=== PATIENT | male | born 1955 | race Caucasian/White ===

== ENCOUNTER 2016-08-31 10:18 | Inpatient (IN) | payer MEDICAID, OTHER, SELFPAY ==
[~2016-08-31] VITALS: Ht 167.6 cm; Wt 79.0 kg
[2016-08-31] MEDS ORDERED: INSU300I SQ (10:55)
[2016-08-31] MEDS ORDERED: INSU200I SQ (10:55)
[2016-08-31] MEDS ORDERED: ONDANSETRON 2MG/ML, 2ML ONE (11:24)
[2016-08-31] MEDS ORDERED: MECLIZINE CHEWABLE 25 MG TAB ONE (11:28)
[2016-08-31] MEDS ORDERED: MECLIZINE CHEWABLE 25 MG TAB PO ONE (11:30)
[2016-08-31] MEDS ORDERED: SODIUM CHLORIDE 0.9% 1,000ML IVBOLUS ONE (11:30)
[2016-08-31] MEDS ORDERED: ONDANSETRON 2MG/ML, 2ML IVPush ONE (11:30)
[2016-08-31] MEDS ORDERED: SODIUM CHLORIDE FLUSH 10ML SYR IVF ONE (11:30)
[2016-08-31 11:57] LABS: ASPARTATE AMINO TRANSFERASE 36 U/L (15-37); BLOOD UREA NITROGEN 14 mg/dL (7-18)
[2016-08-31 12:01] LABS: IS PT STATUS REG ER OR PRE ER? YES
[2016-08-31] MEDS ORDERED: NITROGLYCERIN 0.4 MG BOTTLE (25 TABS) SL PRN (13:00)
[2016-08-31] MEDS ORDERED: DOCUSATE 100 MG CAPSULE PO PRN (13:00)
[2016-08-31] MEDS ORDERED: morphine SULFATE 10 MG/ML, 1ML IVPush PRN (13:00)
[2016-08-31] MEDS ORDERED: ONDANSETRON 2MG/ML, 2ML IVP PRN (13:00)
[2016-08-31] MEDS ORDERED: ENOXAPARIN 40 MG/0.4 ML SQ SCH (13:00)
[2016-08-31] MEDS ORDERED: ENALAPRILAT 1.25 MG/ML, 2ML IVPush PRN (13:00)
[2016-08-31] MEDS ORDERED: ACETAMINOPHEN 325 MG TABLET PO PRN (13:00)
[2016-08-31] MEDS ORDERED: LORazepam 2 MG/ML, 1ML IVPush PRN (13:00)
[2016-08-31 14:10] VITALS: BP 132/71
[2016-08-31] MEDS: HYDROcodone/APAP 5/325 TABLET PO PRN ×2 (14:31→21:15)
[2016-08-31] MEDS ORDERED: GADOBUTROL 10 MMOL/10 ML PFS ONE (15:16)
[2016-08-31] MEDS: ASPIRIN 325 MG TABLET EC PO SCH (15:35)
[2016-08-31] MEDS ORDERED: INSULIN ASPART 100 UNITS/ML, PEN SQ-INSULIN SCH ×2 (16:00→21:00)
[2016-08-31] MEDS: INSULIN ASPART 100 UNITS/ML, PEN SQ-INSULIN SCH ×2 (18:55→22:34)
[2016-08-31 20:00] VITALS: BP 134/75
[2016-08-31 20:10] LABS: IS PT STATUS REG ER OR PRE ER? NO
[2016-08-31] MEDS: ATORVASTATIN 10 MG TABLET PO SCH (22:33)
[2016-08-31] MEDS: ENOXAPARIN 40 MG/0.4 ML SQ SCH (22:33)
[2016-09-01 00:09] LABS: IS PT STATUS REG ER OR PRE ER? NO
[2016-09-01 02:00] VITALS: BP 110/66
[2016-09-01] MEDS: ASPIRIN 325 MG TABLET EC PO SCH (05:48)
[2016-09-01] MEDS: INSULIN ASPART 100 UNITS/ML, PEN SQ-INSULIN SCH ×4 (07:00→20:45)
[2016-09-01 07:14] LABS: ASPARTATE AMINO TRANSFERASE 20 U/L (15-37); BLOOD UREA NITROGEN 15 mg/dL (7-18)
[2016-09-01] MEDS ORDERED: LISINOPRIL 10 MG TABLET PO SCH (09:00)
[2016-09-01] MEDS: INSULIN DETEMIR 100 UNITS/ML, PEN SQ-INSULIN SCH (09:07)
[2016-09-01 09:15] VITALS: BP 136/77
[2016-09-01] MEDS ORDERED: REGADENOSON 0.4 MG/5 ML SYRINGE ONE (09:46)
[2016-09-01 16:52] VITALS: BP 129/76
[2016-09-01 19:42] VITALS: BP 135/75
[2016-09-01] MEDS: ENOXAPARIN 40 MG/0.4 ML SQ SCH (20:46)
[2016-09-01] MEDS: ATORVASTATIN 10 MG TABLET PO SCH (20:47)
[2016-09-02 01:00] VITALS: BP 131/75
[2016-09-02] MEDS: INSULIN ASPART 100 UNITS/ML, PEN SQ-INSULIN SCH ×4 (07:00→20:23)
[2016-09-02 07:47] VITALS: BP 128/65
[2016-09-02] MEDS: ASPIRIN 325 MG TABLET EC PO SCH (08:54)
[2016-09-02] MEDS: INSULIN DETEMIR 100 UNITS/ML, PEN SQ-INSULIN SCH (08:55)
[2016-09-02] MEDS: HYDROcodone/APAP 5/325 TABLET PO PRN (10:23)
[2016-09-02 13:59] VITALS: BP 125/71
[2016-09-02] MEDS: POLYETHYLENE GLYCOL 17 GM PACKET PO PRN (17:19)
[2016-09-02 18:46] VITALS: BP 124/71
[2016-09-02] MEDS: ENOXAPARIN 40 MG/0.4 ML SQ SCH (20:21)
[2016-09-02] MEDS: ATORVASTATIN 10 MG TABLET PO SCH (20:21)
[2016-09-03 01:59] VITALS: BP 136/66
[2016-09-03] MEDS: ASPIRIN 325 MG TABLET EC PO SCH (06:20)
[2016-09-03 06:57] VITALS: BP 153/81
[2016-09-03] MEDS: INSULIN ASPART 100 UNITS/ML, PEN SQ-INSULIN SCH ×4 (07:00→20:51)
[2016-09-03] MEDS: INSULIN DETEMIR 100 UNITS/ML, PEN SQ-INSULIN SCH (09:44)
[2016-09-03] MEDS: POLYETHYLENE GLYCOL 17 GM PACKET PO PRN (10:04)
[2016-09-03] MEDS ORDERED: BISACODYL 10 MG SUPP PR PRN (13:30)
[2016-09-03 14:12] VITALS: BP 161/83
[2016-09-03 18:26] VITALS: BP 155/82
[2016-09-03] MEDS: ATORVASTATIN 10 MG TABLET PO SCH (20:51)
[2016-09-03] MEDS: ENOXAPARIN 40 MG/0.4 ML SQ SCH (20:51)
[2016-09-03] MEDS: HYDROcodone/APAP 5/325 TABLET PO PRN (20:57)
[2016-09-04 00:35] VITALS: BP 136/69
[2016-09-04] MEDS: ASPIRIN 325 MG TABLET EC PO SCH (06:18)
[2016-09-04 06:57] VITALS: BP 117/71
[2016-09-04] MEDS: INSULIN ASPART 100 UNITS/ML, PEN SQ-INSULIN SCH ×2 (07:00→12:56)
[2016-09-04] MEDS: INSULIN DETEMIR 100 UNITS/ML, PEN SQ-INSULIN SCH (10:00)
[2016-09-04] MEDS ORDERED: ATOR10TA9 PO (10:55)
[2016-09-04] MEDS ORDERED: INSU100I28 SQ-INSULIN (10:55)
[2016-09-04] MEDS ORDERED: ASPI-650 PO (10:55)
[2016-09-04 12:50] VITALS: BP 152/87
== END 2016-09-04 14:40 | disposition home health service (06) | DRG 66 ==
LOC: ED 12:01 → 5SO 12:02 → ED 12:33
PROVIDERS: ADMIT Internal Medicine; ATTEND Internal Medicine
DX: I63.9 Cerebral infarction, unspecified (principal); E78.5 Hyperlipidemia, unspecified; E11.42 Type 2 diabetes mellitus with diabetic polyneuropathy; I10 Essential (primary) hypertension; E11.65 Type 2 diabetes mellitus with hyperglycemia; H53.2 Diplopia; I73.9 Peripheral vascular disease, unspecified; R29.810 Facial weakness; Z79.4 Long term (current) use of insulin; Z83.3 Family history of diabetes mellitus; Z85.46 Personal history of malignant neoplasm of prostate; Z90.79 Acquired absence of other genital organ(s); Z87.891 Personal history of nicotine dependence; Z91.14 Patient's other noncompliance with medication regimen; Z91.11 Patient's noncompliance with dietary regimen; Z89.422 Acquired absence of other left toe(s)
CPT/HCPCS: 36415; 70450; 70544; 70549; 70553; 71010; 78452; 80053; 80061; 81003; 82962; 83036; 83605; 83735; 84100; 84443; 84484; 85025; 93005; 93017; 93306; 93880; 96361; 96374; A9585; J1650; J1815; J2405; J2785; 92523-GN; A9502; C9898; J7030

== ENCOUNTER 2017-06-05 09:26 | Emergency (ER) | payer MEDICAID ==
[~2017-06-05] VITALS: Ht 167.6 cm; Wt 87.7 kg
[~2017-06-05 09:26] MED LIST: ASPI-650 PO; ATOR10TA9 PO; INSU100I28 SQ-INSULIN; INSU200I SQ; INSU300I SQ
[2017-06-05 09:40] VITALS: BP 181/52
[2017-06-05 10:41] LABS: BASOPHILS # (AUTO) 0.04 x10^3/uL (0-0.1); BASOPHILS % (AUTO) 0 % (0-1); EOSINOPHILS # (AUTO) 0.12 x10^3/uL (0-0.4); EOSINOPHILS % (AUTO) 1 % (1-7); LYMPHOCYTES # (AUTO) 1.07 x10^3/uL (1-3.4); LYMPHOCYTES % (AUTO) 9 % (22-44); MD NO; MEAN CORPUSCULAR HEMOGLOBIN 30.2 pg (27.5-34.5); MEAN CORPUSCULAR HGB CONC 33.6 g/dL (33.2-36.2); MEAN CORPUSCULAR VOLUME 89.9 fL (81-97); MEAN PLATELET VOLUME 7.9 fL (7.4-10.4); MONOCYTES # (AUTO) 0.43 x10^3/uL (0.2-0.8); MONOCYTES % (AUTO) 4 % (2-9); NEUTROPHILS # (AUTO) 10.22 x10^3/uL (1.8-6.8); NEUTROPHILS % (AUTO) 86 % (42-75); PLATELET COUNT 231 x10^3/uL (130-400); RED BLOOD COUNT 4.84 x10^6/uL (4.38-5.82); RED CELL DISTRIBUTION WIDTH 13.3 % (9.4-14.8)
[2017-06-05] MEDS ORDERED: INSU100C SQ-INSULIN (10:46)
[2017-06-05] MEDS ORDERED: LISI2.5T PO (10:46)
[2017-06-05] MEDS ORDERED: PROP20TA PO (10:47)
[2017-06-05] MEDS ORDERED: GLIP5TAB10 PO (10:47)
[2017-06-05] MEDS ORDERED: INSU300I INJ (10:48)
[2017-06-05] MEDS ORDERED: NORT10CA PO (10:48)
[2017-06-05 10:49] LABS: MICROSCOPIC AUTO
[2017-06-05 10:52] LABS: CULTURE INDICATED? YES
[2017-06-05 10:56] LABS: ANION GAP 7 mmol/L (5-15); CALCIUM 8.7 mg/dL (8.5-10.1); CHLORIDE 106 mmol/L (98-107)
[2017-06-05 10:59] LABS: ALANINE AMINOTRANSFERASE 66 U/L (12-78); ALKALINE PHOSPHATASE 91 U/L (45-117); BILIRUBIN,TOTAL 0.6 mg/dL (0.2-1.0); CREATININE 0.92 mg/dL (0.7-1.3); TOTAL PROTEIN 7.9 g/dL (6.4-8.2)
== END 2017-06-05 12:11 | disposition home or self-care (01) ==
LOC: ED 10:35
DX: N30.90 Cystitis, unspecified without hematuria (principal); I25.2 Old myocardial infarction; E11.9 Type 2 diabetes mellitus without complications; I10 Essential (primary) hypertension; Z79.4 Long term (current) use of insulin
CPT/HCPCS: 36415; 80053; 81001; 85025; 87077; 87086; 87186; 99284

== ENCOUNTER 2020-03-13 12:07 | Emergency (ER) | payer MEDICARE, MEDICAID ==
[~2020-03-13] VITALS: Ht 167.6 cm; Wt 83.9 kg
[~2020-03-13 12:07] MED LIST changes: +GLIP5TAB10 PO; +INSU100C SQ-INSULIN; +INSU300I INJ; +LISI2.5T PO; +NORT10CA PO; +PROP20TA PO
[2020-03-13] MEDS ORDERED: LIDOCAINE 2%,20 ML JEL.PF.APP MM ONE ×2 (12:30→12:43)
[2020-03-13 12:54] LABS: BASOPHILS % (AUTO) 1 % (0-1); EOSINOPHILS % (AUTO) 1 % (1-7); LYMPHOCYTES % (AUTO) 8 % (22-44); MEAN CORPUSCULAR HEMOGLOBIN 27.3 pg (27.5-34.5); MEAN CORPUSCULAR HGB CONC 32.2 g/dL (33.2-36.2); MEAN PLATELET VOLUME 8.7 fL (7.4-10.4); MONOCYTES % (AUTO) 5 % (2-9); NEUTROPHILS % (AUTO) 86 % (42-75); PLATELET COUNT 240 x10^3/uL (130-400); RED BLOOD COUNT 4.08 x10^6/uL (4.38-5.82); RED CELL DISTRIBUTION WIDTH 16.1 % (9.4-14.8)
[2020-03-13 13:02] LABS: ALANINE AMINOTRANSFERASE 54 U/L (12-78); ALBUMIN 3.7 g/dL (3.4-5.0); ANION GAP 5 mmol/L (5-15); CALCIUM 8.6 mg/dL (8.5-10.1); CHLORIDE 104 mmol/L (98-107)
[2020-03-13 13:05] LABS: ALKALINE PHOSPHATASE 87 U/L (45-117); BILIRUBIN,TOTAL 0.6 mg/dL (0.2-1.0); CREATININE 1.27 mg/dL (0.7-1.3); TOTAL PROTEIN 7.7 g/dL (6.4-8.2)
[2020-03-13 13:20] LABS: MD SCAN
--- NOTE | 2020-03-13 13:34 | NUR ---
THREE WAY DENNY PLACED. DRAIN ABOUT 100ML CLEAR YELLOW URINE. URINE COLLECTED AND SENT TO LAB. PT TOLERATED WELL.
[2020-03-13 14:00] LABS: MICROSCOPIC INDICATED
--- NOTE | 2020-03-13 14:40 | NUR ---
N/O FOR RETEST ON POTASSIUM LAB.
[2020-03-13 16:07] VITALS: BP 115/65
--- NOTE | 2020-03-13 16:11 | NUR ---
MD TO CONSULT WITH UROLOGY ABOUT ELEVATED POTASSIUM
--- NOTE | 2020-03-13 16:25 | NUR ---
MD AT BEDSIDE TO UPDATE PT ON POC.
== END 2020-03-13 17:42 | disposition home or self-care (01) ==
LOC: ED 12:40
DX: N30.01 Acute cystitis with hematuria (principal); R33.9 Retention of urine, unspecified; E87.5 Hyperkalemia; I10 Essential (primary) hypertension; E11.9 Type 2 diabetes mellitus without complications; I25.2 Old myocardial infarction; Z85.46 Personal history of malignant neoplasm of prostate
CPT/HCPCS: 36415; 51702; 80053; 81001; 84132; 85025; 87086; 93005; 99284

== ENCOUNTER 2020-04-02 10:42 | Emergency (ER) | payer MEDICARE, MEDICAID ==
[~2020-04-02] VITALS: Ht 170.2 cm; Wt 83.6 kg
--- NOTE | 2020-04-02 11:12 | NUR ---
PT AMBULATED TO RESTROOM WITH STEADY GAIT TO PROVIDE URINE SAMPLE. UA COLLECTED AND TAKEN TO LAB.
[2020-04-02] MEDS ORDERED: ONDANSETRON 2MG/ML, 2ML ONE (11:25)
[2020-04-02] MEDS ORDERED: MORPHINE SULFATE 4 MG/ML, 1ML ONE (11:25)
[2020-04-02] MEDS ORDERED: MORPHINE SULFATE 4 MG/ML, 1ML IVPush PRN (11:30)
[2020-04-02] MEDS ORDERED: ONDANSETRON 2MG/ML, 2ML IVPush ONE (11:30)
--- NOTE | 2020-04-02 11:30 | NUR ---
PIV PLACED, 1 SET BLOOD CX DRAWN, LAB TO DRAW SECOND SET, MEDS ADMIN PER JUN. PT CONNECTED TO MONITORING. CALL LIGHT IN REACH.
[2020-04-02 11:51] LABS: MICROSCOPIC INDICATED
[2020-04-02 12:17] LABS: BASOPHILS % (AUTO) 1 % (0-1); EOSINOPHILS % (AUTO) 2 % (1-7); LYMPHOCYTES % (AUTO) 12 % (22-44); MEAN CORPUSCULAR HEMOGLOBIN 27.8 pg (27.5-34.5); MEAN CORPUSCULAR HGB CONC 33.3 g/dL (33.2-36.2); MEAN PLATELET VOLUME 7.9 fL (7.4-10.4); MONOCYTES % (AUTO) 7 % (2-9); NEUTROPHILS % (AUTO) 79 % (42-75); PLATELET COUNT 259 x10^3/uL (130-400); RED BLOOD COUNT 3.81 x10^6/uL (4.38-5.82); RED CELL DISTRIBUTION WIDTH 16.2 % (9.4-14.8)
[2020-04-02 12:23] LABS: MD NO
[2020-04-02 12:25] LABS: ALBUMIN 3.4 g/dL (3.4-5.0); ANION GAP 3 mmol/L (5-15); CALCIUM 8.3 mg/dL (8.5-10.1); CHLORIDE 111 mmol/L (98-107); CREATININE 1.07 mg/dL (0.7-1.3)
[2020-04-02 12:51] LABS: INTERNATIONAL NORMALIZED RATIO 1.06 (0.93-1.1); PROTHROMBIN TIME 11.2 Seconds (9.6-11.5)
[2020-04-02] MEDS ORDERED: DEXTROSE 50%, 50ML SYRINGE ONE (12:58)
[2020-04-02] MEDS ORDERED: INSULIN REGULAR 100 UNITS/ML, 3ML VIAL IVPush ONE (13:00)
[2020-04-02] MEDS ORDERED: DEXTROSE 50%, 50ML SYRINGE IVPush ONE (13:00)
[2020-04-02] MEDS ORDERED: INSULIN SINGLE DOSE, ER ONE (13:02)
--- NOTE | 2020-04-02 13:13 | NUR ---
MEDS ADMIN PER JUN.
--- NOTE | 2020-04-02 13:25 | NUR ---
RECEIVED N/O FOR CT. BG RECHECK AFTER MEDS 351.
--- NOTE | 2020-04-02 14:09 | NUR ---
PT GOING TO CT.
--- NOTE | 2020-04-02 15:00 | NUR ---
ALL RESULTS ARE BACK AT THIS TIME. CHART UP FOR RECHECK.
--- NOTE | 2020-04-02 15:10 | NUR ---
RECEIVED N/O TO RECHECK POTASSIUM LEVEL.
--- NOTE | 2020-04-02 16:00 | NUR ---
ALL RESULTS ARE BACK AT THIS TIME. CHART UP FOR RECHECK.
[2020-04-02 16:45] VITALS: BP 116/62
== END 2020-04-02 16:38 | disposition home or self-care (01) ==
LOC: ED 11:12
DX: E87.5 Hyperkalemia (principal); R31.0 Gross hematuria; R10.32 Left lower quadrant pain; R19.7 Diarrhea, unspecified; E11.9 Type 2 diabetes mellitus without complications; I25.2 Old myocardial infarction; I10 Essential (primary) hypertension; Z85.46 Personal history of malignant neoplasm of prostate
CPT/HCPCS: 36415; 74176; 80047; 80048; 81001; 82040; 82962; 83605; 83735; 85025; 85610; 87040; 87077; 87086; 93005; 96374; 96375; 99285; J1815; J2270; J2405; 87186